=== PATIENT | male | born 1975 | race Caucasian/White ===

== ENCOUNTER 2018-01-07 16:16 | Inpatient (IN) | payer OTHER ==
[2018-01-07] MEDS ORDERED: ONDANSETRON 4 MG INJ IV ×2 (17:00→19:30)
[2018-01-07] MEDS ORDERED: DOCUSATE SODIUM 100 MG CAP PO (19:30)
[2018-01-07] MEDS ORDERED: BISACODYL (EC) 5 MG TAB PO (19:30)
[2018-01-07] MEDS ORDERED: MAGNESIUM HYDROXIDE 30ML CUP PO (19:30)
[2018-01-07] MEDS ORDERED: ACETAMINOPHEN 650 MG SUPP PR (19:30)
[2018-01-07] MEDS ORDERED: NACL 0.9% 3 ML SYG IV (19:30)
[2018-01-07] MEDS: SOD CHLORIDE 0.9% 1,000 ML IV (20:06)
[2018-01-08] MEDS: PIPER-TAZO 3.375 GM IV (PMX) 100 ML IVPB ×4 (00:54→18:10)
[2018-01-08] MEDS: ACETAMINOPHEN 325 MG TAB PO (00:54)
[2018-01-08] MEDS: ALBUTEROL/IPRATROPIUM (NEB) 3 ML AMP HHN ×5 (01:59→19:26)
[2018-01-08 06:51] LABS: ADD MAN DIFF? NO
[2018-01-08] MEDS ORDERED: PENDING SANTYL ORDER FOR WOUND CARE XX (07:00)
[2018-01-08 07:01] LABS: BASOPHIL # 0.1 10^3/ul (0.0-0.1); BASOPHILS % 0.4 % (0.0-2.0); EOSINOPHILS # 0.1 10^3/ul (0.0-0.5); EOSINOPHILS % 0.3 % (0.0-7.0); HEMATOCRIT 39.3 % (42.0-52.0); HEMOGLOBIN 13.1 g/dl (14.0-18.0); LYMPHOCYTES # 1.4 10^3/ul (0.8-2.9); LYMPHOCYTES % 7.7 % (15.0-51.0); MEAN CORPUSCULAR HEMOGLOBIN 29.7 pg (29.0-33.0); MEAN CORPUSCULAR HGB CONC 33.3 g/dl (32.0-37.0); MEAN CORPUSCULAR VOLUME 89.1 fl (82.0-101.0); MEAN PLATELET VOLUME 10.8 fl (7.4-10.4); MONOCYTE # 1.2 10^3/ul (0.3-0.9); MONOCYTES % 6.6 % (0.0-11.0); NEUTROPHIL # 15.8 10^3/ul (1.6-7.5); NEUTROPHILS % 84.5 % (39.0-77.0); PLATELET COUNT 271 10^3/UL (140-415); RED BLOOD COUNT 4.41 10^6/ul (4.70-6.10); RED CELL DISTRIBUTION WIDTH 13.8 % (11.5-14.5)
[2018-01-08 07:01] LABS: WHITE BLOOD COUNT 18.7 10^3/ul (4.8-10.8)
[2018-01-08 07:14] LABS: ALANINE AMINOTRANSFERASE 100 IU/L (13-69); ALBUMIN 3.9 g/dl (3.3-4.9); ALBUMIN/GLOBULIN RATIO 1.11; ALKALINE PHOSPHATASE 194 IU/L (42-121); ANION GAP 17 (8-16); ASPARTATE AMINO TRANSFERASE 80 IU/L (15-46); BILIRUBIN,INDIRECT 0.6 mg/dl (0-1.1); BILIRUBIN,TOTAL 0.6 mg/dl (0.2-1.3); BLOOD UREA NITROGEN 9 mg/dl (7-20); CALCIUM 9.3 mg/dl (8.4-10.2); CARBON DIOXIDE 24 mmol/L (21-31); CHLORIDE 106 mmol/L (97-110); CREATININE 0.64 mg/dl (0.61-1.24); GLUCOSE 153 mg/dl (70-220); POTASSIUM 3.7 mmol/L (3.5-5.1); SODIUM 143 mmol/L (135-144); TOTAL PROTEIN 7.4 g/dl (6.1-8.1)
[2018-01-08] MEDS: ENOXAPARIN 40 MG/0.4 ML SYG SC (09:56)
[2018-01-08] MEDS ORDERED: ALBUTEROL 0.083% (NEB) 2.5 MG/3 ML AMP NEB (12:30)
[2018-01-08] MEDS ORDERED: HYDROCODONE/APAP (5/325) TAB PO (12:30)
[2018-01-08] MEDS ORDERED: MINERAL OIL 133 ML ENEMA PR (12:30)
[2018-01-08] MEDS ORDERED: ACETAMINOPHEN 325 MG TAB PO (12:30)
[2018-01-08] MEDS: GUAIFENESIN LA 600 MG TABSR PO (13:26)
[2018-01-08] MEDS: BISACODYL 10 MG SUPP PR (13:26)
[2018-01-08] MEDS: GABAPENTIN 100 MG CAP PO ×2 (13:27→21:04)
[2018-01-08] MEDS: BACLOFEN 10 MG TAB PO ×2 (13:27→21:03)
[2018-01-08] MEDS: ASCORBIC ACID 500 MG TAB PO (13:41)
[2018-01-08] MEDS: LORATADINE 10 MG TAB PO (13:41)
[2018-01-08] MEDS: FAMOTIDINE 20 MG TAB PO ×2 (13:41→21:04)
[2018-01-08] MEDS: DOCUSATE SODIUM 100 MG CAP PO ×2 (13:42→21:03)
[2018-01-08] MEDS: COLLAGENASE 30 GM TUBE TOP (14:00)
[2018-01-08] MEDS: METOPROLOL (XL) 50 MG TAB PO (21:00)
[2018-01-08] MEDS: PRAZOSIN 1 MG CAP PO (21:00)
[2018-01-09] MEDS: SOD CHLORIDE 0.9% 1,000 ML IV
[2018-01-09] MEDS: GUAIFENESIN LA 600 MG TABSR PO ×2 (00:39→13:38)
[2018-01-09] MEDS: PIPER-TAZO 3.375 GM IV (PMX) 100 ML IVPB ×4 (00:39→20:52)
[2018-01-09] MEDS: ALBUTEROL/IPRATROPIUM (NEB) 3 ML AMP HHN ×4 (02:15→20:31)
[2018-01-09 07:20] LABS: ADD MAN DIFF? NO
[2018-01-09 07:30] LABS: WHITE BLOOD COUNT 10.7 10^3/ul (4.8-10.8)
[2018-01-09 07:30] LABS: BASOPHIL # 0.1 10^3/ul (0.0-0.1); BASOPHILS % 0.7 % (0.0-2.0); EOSINOPHILS # 0.4 10^3/ul (0.0-0.5); EOSINOPHILS % 3.5 % (0.0-7.0); HEMATOCRIT 36.8 % (42.0-52.0); HEMOGLOBIN 12.3 g/dl (14.0-18.0); LYMPHOCYTES # 2.2 10^3/ul (0.8-2.9); LYMPHOCYTES % 20.3 % (15.0-51.0); MEAN CORPUSCULAR HEMOGLOBIN 29.7 pg (29.0-33.0); MEAN CORPUSCULAR HGB CONC 33.4 g/dl (32.0-37.0); MEAN CORPUSCULAR VOLUME 88.9 fl (82.0-101.0); MONOCYTE # 0.7 10^3/ul (0.3-0.9); MONOCYTES % 6.9 % (0.0-11.0); NEUTROPHIL # 7.3 10^3/ul (1.6-7.5); NEUTROPHILS % 68.3 % (39.0-77.0); PLATELET COUNT 327 10^3/UL (140-415); RED BLOOD COUNT 4.14 10^6/ul (4.70-6.10); RED CELL DISTRIBUTION WIDTH 13.7 % (11.5-14.5)
[2018-01-09 07:55] LABS: ALANINE AMINOTRANSFERASE 103 IU/L (13-69); ALBUMIN 3.6 g/dl (3.3-4.9); ALBUMIN/GLOBULIN RATIO 1.12; ALKALINE PHOSPHATASE 100 IU/L (42-121); ANION GAP 13 (8-16); ASPARTATE AMINO TRANSFERASE 43 IU/L (15-46); BILIRUBIN,INDIRECT 0.2 mg/dl (0-1.1); BILIRUBIN,TOTAL 0.2 mg/dl (0.2-1.3); BLOOD UREA NITROGEN 5 mg/dl (7-20); CALCIUM 8.9 mg/dl (8.4-10.2); CARBON DIOXIDE 27 mmol/L (21-31); CHLORIDE 109 mmol/L (97-110); CREATININE 0.64 mg/dl (0.61-1.24); GLUCOSE 127 mg/dl (70-220); POTASSIUM 3.7 mmol/L (3.5-5.1); SODIUM 145 mmol/L (135-144); TOTAL PROTEIN 6.8 g/dl (6.1-8.1)
[2018-01-09] MEDS: MAGNESIUM HYDROXIDE 30ML CUP PO (09:00)
[2018-01-09] MEDS ORDERED: COLLAGENASE 30 GM TUBE TOP (09:00)
[2018-01-09] MEDS: FAMOTIDINE 20 MG TAB PO ×2 (09:51→20:53)
[2018-01-09] MEDS: DOCUSATE SODIUM 100 MG CAP PO ×2 (09:51→20:52)
[2018-01-09] MEDS: LISINOPRIL 10 MG TAB PO (09:52)
[2018-01-09] MEDS: LORATADINE 10 MG TAB PO (09:52)
[2018-01-09] MEDS: ASCORBIC ACID 500 MG TAB PO (09:52)
[2018-01-09] MEDS: TAMSULOSIN (SR) 0.4 MG CAP PO (09:52)
[2018-01-09] MEDS: GABAPENTIN 100 MG CAP PO ×3 (09:52→20:53)
[2018-01-09] MEDS: BACLOFEN 10 MG TAB PO ×3 (09:52→20:55)
[2018-01-09] MEDS: METOPROLOL (XL) 50 MG TAB PO ×2 (09:52→20:54)
[2018-01-09] MEDS: ENOXAPARIN 40 MG/0.4 ML SYG SC (10:07)
[2018-01-09 11:23] LABS: ADD UMIC NO; UR ASCORBIC ACID 20 mg/dL (NEGATIVE); UR BILIRUBIN (Dip) NEGATIVE (NEGATIVE); UR BLOOD (Dip) NEGATIVE (NEGATIVE); UR CLARITY CLEAR (CLEAR); UR COLOR YELLOW (YELLOW); UR GLUCOSE (Dip) 1+ mg/dL (NEGATIVE); UR KETONES (Dip) NEGATIVE (NEGATIVE); UR LEUKOCYTE ESTERASE (Dip) NEGATIVE Leu/ul (NEGATIVE); UR NITRITE (Dip) NEGATIVE (NEGATIVE); UR SPECIFIC GRAVITY (Dip) 1.015 (1.003-1.030); UR TOTAL PROTEIN (Dip) NEGATIVE (NEGATIVE); UR UROBILINOGEN (Dip) NEGATIVE (NEGATIVE)
[2018-01-09] MEDS: COLLAGENASE 30 GM TUBE TOP (13:37)
[2018-01-09] MEDS: BISACODYL 10 MG SUPP PR (20:54)
[2018-01-09] MEDS: PRAZOSIN 1 MG CAP PO (20:54)
[2018-01-10] MEDS: PIPER-TAZO 3.375 GM IV (PMX) 100 ML IVPB ×4 (00:51→17:29)
[2018-01-10] MEDS: GUAIFENESIN LA 600 MG TABSR PO ×2 (00:51→12:51)
[2018-01-10] MEDS: ALBUTEROL/IPRATROPIUM (NEB) 3 ML AMP HHN ×4 (02:17→19:55)
[2018-01-10] MEDS: ACETAMINOPHEN 325 MG TAB PO (06:34)
[2018-01-10] MEDS: MAGNESIUM HYDROXIDE 30ML CUP PO ×2 (08:27→08:40)
[2018-01-10] MEDS: GABAPENTIN 100 MG CAP PO ×3 (08:28→20:14)
[2018-01-10] MEDS: FAMOTIDINE 20 MG TAB PO ×2 (08:28→20:14)
[2018-01-10] MEDS: DOCUSATE SODIUM 100 MG CAP PO ×2 (08:28→20:14)
[2018-01-10] MEDS: TAMSULOSIN (SR) 0.4 MG CAP PO (08:28)
[2018-01-10] MEDS: ASCORBIC ACID 500 MG TAB PO (08:28)
[2018-01-10] MEDS: LISINOPRIL 10 MG TAB PO (08:28)
[2018-01-10] MEDS: BACLOFEN 10 MG TAB PO ×3 (08:28→20:14)
[2018-01-10] MEDS: LORATADINE 10 MG TAB PO (08:28)
[2018-01-10] MEDS: METOPROLOL (XL) 50 MG TAB PO ×2 (08:29→20:15)
[2018-01-10] MEDS: COLLAGENASE 30 GM TUBE TOP (08:30)
[2018-01-10] MEDS: ENOXAPARIN 40 MG/0.4 ML SYG SC (08:39)
[2018-01-10] MEDS: PRAZOSIN 1 MG CAP PO (20:15)
[2018-01-10] MEDS: BISACODYL 10 MG SUPP PR (20:16)
[2018-01-11] MEDS: GUAIFENESIN LA 600 MG TABSR PO ×2 (00:30→13:33)
[2018-01-11] MEDS: PIPER-TAZO 3.375 GM IV (PMX) 100 ML IVPB ×4 (00:50→19:07)
[2018-01-11] MEDS: ALBUTEROL/IPRATROPIUM (NEB) 3 ML AMP HHN ×4 (01:43→19:42)
[2018-01-11] MEDS: ACETAMINOPHEN 325 MG TAB PO ×2 (06:01→13:33)
[2018-01-11] MEDS: MAGNESIUM HYDROXIDE 30ML CUP PO (09:00)
[2018-01-11] MEDS: TAMSULOSIN (SR) 0.4 MG CAP PO (09:33)
[2018-01-11] MEDS: BACLOFEN 10 MG TAB PO ×3 (09:33→21:21)
[2018-01-11] MEDS: LORATADINE 10 MG TAB PO (09:33)
[2018-01-11] MEDS: DOCUSATE SODIUM 100 MG CAP PO ×2 (09:33→21:21)
[2018-01-11] MEDS: ASCORBIC ACID 500 MG TAB PO (09:34)
[2018-01-11] MEDS: FAMOTIDINE 20 MG TAB PO ×2 (09:34→21:21)
[2018-01-11] MEDS: GABAPENTIN 100 MG CAP PO ×3 (09:34→21:21)
[2018-01-11] MEDS: METOPROLOL (XL) 50 MG TAB PO ×2 (09:34→21:21)
[2018-01-11] MEDS: LISINOPRIL 10 MG TAB PO (09:34)
[2018-01-11] MEDS: COLLAGENASE 30 GM TUBE TOP (09:35)
[2018-01-11] MEDS: ENOXAPARIN 40 MG/0.4 ML SYG SC (09:37)
[2018-01-11 11:13] LABS: ADD MAN DIFF? NO
[2018-01-11 11:21] LABS: WHITE BLOOD COUNT 8.1 10^3/ul (4.8-10.8)
[2018-01-11 11:21] LABS: BASOPHIL # 0.1 10^3/ul (0.0-0.1); BASOPHILS % 0.7 % (0.0-2.0); EOSINOPHILS # 0.6 10^3/ul (0.0-0.5); EOSINOPHILS % 6.8 % (0.0-7.0); HEMATOCRIT 36.7 % (42.0-52.0); HEMOGLOBIN 12.4 g/dl (14.0-18.0); LYMPHOCYTES # 1.8 10^3/ul (0.8-2.9); LYMPHOCYTES % 21.9 % (15.0-51.0); MEAN CORPUSCULAR HEMOGLOBIN 29.7 pg (29.0-33.0); MEAN CORPUSCULAR HGB CONC 33.8 g/dl (32.0-37.0); MEAN CORPUSCULAR VOLUME 87.8 fl (82.0-101.0); MEAN PLATELET VOLUME 9.6 fl (7.4-10.4); MONOCYTE # 0.5 10^3/ul (0.3-0.9); MONOCYTES % 5.9 % (0.0-11.0); NEUTROPHIL # 5.2 10^3/ul (1.6-7.5); NEUTROPHILS % 64.1 % (39.0-77.0); PLATELET COUNT 423 10^3/UL (140-415); RED BLOOD COUNT 4.18 10^6/ul (4.70-6.10); RED CELL DISTRIBUTION WIDTH 13.2 % (11.5-14.5)
[2018-01-11 11:54] LABS: ANION GAP 13 (8-16); BLOOD UREA NITROGEN 5 mg/dl (7-20); CALCIUM 9.5 mg/dl (8.4-10.2); CARBON DIOXIDE 27 mmol/L (21-31); CHLORIDE 104 mmol/L (97-110); CREATININE 0.69 mg/dl (0.61-1.24); GLUCOSE 217 mg/dl (70-220); POTASSIUM 3.9 mmol/L (3.5-5.1); SODIUM 140 mmol/L (135-144)
[2018-01-11] MEDS ORDERED: GUAIFENESIN/CODEINE 5ML CUP PO (13:30)
[2018-01-11] MEDS: PRAZOSIN 1 MG CAP PO (21:20)
[2018-01-11] MEDS: BISACODYL 10 MG SUPP PR (21:21)
[2018-01-12] MEDS: PIPER-TAZO 3.375 GM IV (PMX) 100 ML IVPB ×4 (00:16→17:43)
[2018-01-12] MEDS: GUAIFENESIN LA 600 MG TABSR PO ×2 (00:16→12:30)
[2018-01-12] MEDS: ALBUTEROL/IPRATROPIUM (NEB) 3 ML AMP HHN ×4 (01:34→20:11)
[2018-01-12] MEDS: GABAPENTIN 100 MG CAP PO ×3 (08:59→22:17)
[2018-01-12] MEDS: ASCORBIC ACID 500 MG TAB PO (08:59)
[2018-01-12] MEDS: MAGNESIUM HYDROXIDE 30ML CUP PO (09:00)
[2018-01-12] MEDS: METOPROLOL (XL) 50 MG TAB PO ×4 (09:00→22:17)
[2018-01-12] MEDS: TAMSULOSIN (SR) 0.4 MG CAP PO (09:01)
[2018-01-12] MEDS: LORATADINE 10 MG TAB PO (09:01)
[2018-01-12] MEDS: LISINOPRIL 20 MG TAB PO (09:01)
[2018-01-12] MEDS: FAMOTIDINE 20 MG TAB PO ×2 (09:01→22:17)
[2018-01-12] MEDS: BACLOFEN 10 MG TAB PO ×3 (09:03→22:18)
[2018-01-12] MEDS: DOCUSATE SODIUM 100 MG CAP PO ×2 (09:04→22:17)
[2018-01-12] MEDS: ENOXAPARIN 40 MG/0.4 ML SYG SC (09:04)
[2018-01-12] MEDS: COLLAGENASE 30 GM TUBE TOP (09:05)
[2018-01-12] MEDS: ACETAMINOPHEN 325 MG TAB PO ×2 (09:13→22:31)
[2018-01-12] MEDS ORDERED: AL HYDROX/MG HYDROX/SIMETH 30 ML CUP PO (15:30)
[2018-01-12] MEDS: BISACODYL 10 MG SUPP PR ×2 (21:00→22:18)
[2018-01-12] MEDS: PRAZOSIN 1 MG CAP PO (22:18)
[2018-01-13] MEDS: PIPER-TAZO 3.375 GM IV (PMX) 100 ML IVPB ×4 (00:31→17:03)
[2018-01-13] MEDS: GUAIFENESIN LA 600 MG TABSR PO ×2 (00:33→12:33)
[2018-01-13] MEDS: ALBUTEROL/IPRATROPIUM (NEB) 3 ML AMP HHN ×4 (01:21→19:51)
[2018-01-13] MEDS: METOPROLOL (XL) 50 MG TAB PO (09:00)
[2018-01-13] MEDS: MAGNESIUM HYDROXIDE 30ML CUP PO (09:00)
[2018-01-13] MEDS: DOCUSATE SODIUM 100 MG CAP PO (09:00)
[2018-01-13] MEDS: GABAPENTIN 100 MG CAP PO ×3 (09:23→21:45)
[2018-01-13] MEDS: BACLOFEN 10 MG TAB PO ×3 (09:23→21:46)
[2018-01-13] MEDS: FAMOTIDINE 20 MG TAB PO ×2 (09:23→21:44)
[2018-01-13] MEDS: TAMSULOSIN (SR) 0.4 MG CAP PO (09:24)
[2018-01-13] MEDS: ENOXAPARIN 40 MG/0.4 ML SYG SC (09:24)
[2018-01-13] MEDS: LISINOPRIL 20 MG TAB PO (09:24)
[2018-01-13] MEDS: ASCORBIC ACID 500 MG TAB PO (09:24)
[2018-01-13] MEDS: LORATADINE 10 MG TAB PO (09:24)
[2018-01-13] MEDS: COLLAGENASE 30 GM TUBE TOP (09:26)
[2018-01-13] MEDS: BISACODYL 10 MG SUPP PR (21:45)
[2018-01-13] MEDS: PRAZOSIN 1 MG CAP PO (21:45)
[2018-01-14] MEDS: GUAIFENESIN LA 600 MG TABSR PO ×2 (01:17→12:09)
[2018-01-14] MEDS: PIPER-TAZO 3.375 GM IV (PMX) 100 ML IVPB ×4 (01:17→17:33)
[2018-01-14] MEDS: ALBUTEROL/IPRATROPIUM (NEB) 3 ML AMP HHN ×4 (02:07→19:37)
[2018-01-14] MEDS: ENOXAPARIN 40 MG/0.4 ML SYG SC (10:01)
[2018-01-14] MEDS: LORATADINE 10 MG TAB PO (10:03)
[2018-01-14] MEDS: LISINOPRIL 20 MG TAB PO (10:03)
[2018-01-14] MEDS: BACLOFEN 10 MG TAB PO ×3 (10:03→20:23)
[2018-01-14] MEDS: GABAPENTIN 100 MG CAP PO ×3 (10:03→20:23)
[2018-01-14] MEDS: FAMOTIDINE 20 MG TAB PO ×2 (10:03→20:24)
[2018-01-14] MEDS: ASCORBIC ACID 500 MG TAB PO (10:03)
[2018-01-14] MEDS: TAMSULOSIN (SR) 0.4 MG CAP PO (10:03)
[2018-01-14] MEDS: COLLAGENASE 30 GM TUBE TOP (10:04)
[2018-01-14] MEDS: BISACODYL 10 MG SUPP PR (20:24)
[2018-01-14] MEDS: PRAZOSIN 1 MG CAP PO (20:24)
== END 2018-01-14 20:59 | DRG 871 ==
LOC: TEL 16:34 → PP2 01-10 23:15 → E/R 16:16
DX: A41.9 Sepsis, unspecified organism (principal); J69.0 Pneumonitis due to inhalation of food and vomit; G82.50 Quadriplegia, unspecified; L89.153 Pressure ulcer of sacral region, stage 3; L89.893 Pressure ulcer of other site, stage 3; L89.323 Pressure ulcer of left buttock, stage 3; L89.313 Pressure ulcer of right buttock, stage 3; R06.03 Acute respiratory distress; R33.9 Retention of urine, unspecified; I10 Essential (primary) hypertension; Z74.01 Bed confinement status
CPT/HCPCS: 71045; 80048; 80053; 81003; 85025; 92526; 92610; 94640; 99285-25

== ENCOUNTER 2018-01-23 12:38 | Inpatient (IN) | payer OTHER ==
[2018-01-23] MEDS: ALBUTEROL/IPRATROPIUM (NEB) 3 ML AMP HHN ×2 (14:30→19:55)
[2018-01-23] MEDS ORDERED: morphine 2 MG INJ IV (14:30)
[2018-01-23] MEDS ORDERED: MINERAL OIL 133 ML ENEMA PR (15:30)
[2018-01-23] MEDS: ASCORBIC ACID 500 MG TAB PO (15:30)
[2018-01-23] MEDS: LISINOPRIL 10 MG TAB PO (15:30)
[2018-01-23] MEDS: BISACODYL 10 MG SUPP PR (15:30)
[2018-01-23] MEDS ORDERED: HYDROCODONE/APAP (5/325) TAB PO (15:30)
[2018-01-23] MEDS ORDERED: NON-FORMULARY/PATIENT OWN MED (Cranberry Fruit Concentrate (Cranberry) 450 MG) PO (15:30)
[2018-01-23] MEDS ORDERED: ACETAMINOPHEN 325 MG TAB PO (15:30)
[2018-01-23 15:45] LABS: ADD MAN DIFF? NO
[2018-01-23 15:47] LABS: WHITE BLOOD COUNT 8.5 10^3/ul (4.8-10.8)
[2018-01-23 15:47] LABS: BASOPHIL # 0.1 10^3/ul (0.0-0.1); BASOPHILS % 0.7 % (0.0-2.0); EOSINOPHILS # 0.2 10^3/ul (0.0-0.5); EOSINOPHILS % 2.4 % (0.0-7.0); HEMATOCRIT 40.9 % (42.0-52.0); HEMOGLOBIN 13.7 g/dl (14.0-18.0); LYMPHOCYTES # 1.3 10^3/ul (0.8-2.9); LYMPHOCYTES % 14.7 % (15.0-51.0); MEAN CORPUSCULAR HEMOGLOBIN 29.7 pg (29.0-33.0); MEAN CORPUSCULAR HGB CONC 33.5 g/dl (32.0-37.0); MEAN CORPUSCULAR VOLUME 88.7 fl (82.0-101.0); MEAN PLATELET VOLUME 9.8 fl (7.4-10.4); MONOCYTE # 0.5 10^3/ul (0.3-0.9); MONOCYTES % 6.1 % (0.0-11.0); NEUTROPHIL # 6.4 10^3/ul (1.6-7.5); NEUTROPHILS % 75.7 % (39.0-77.0); PLATELET COUNT 408 10^3/UL (140-415); RED BLOOD COUNT 4.61 10^6/ul (4.70-6.10); RED CELL DISTRIBUTION WIDTH 13.3 % (11.5-14.5)
[2018-01-23] MEDS: GUAIFENESIN LA 600 MG TABSR PO (16:00)
[2018-01-23 16:07] LABS: ANION GAP 15 (8-16); BLOOD UREA NITROGEN 6 mg/dl (7-20); CALCIUM 9.4 mg/dl (8.4-10.2); CARBON DIOXIDE 27 mmol/L (21-31); CHLORIDE 106 mmol/L (97-110); CREATININE 0.64 mg/dl (0.61-1.24); GLUCOSE 119 mg/dl (70-220); SODIUM 144 mmol/L (135-144)
[2018-01-23] MEDS: CEFTRIAXONE 1 GM/50 ML (PMX) 50 ML IVPB (17:22)
[2018-01-23] MEDS: CYCLOBENZAPRINE 10 MG TAB PO ×2 (17:22→19:00)
[2018-01-23] MEDS: GABAPENTIN 300 MG CAP PO ×2 (17:22→22:00)
[2018-01-23] MEDS: TAMSULOSIN (SR) 0.4 MG CAP PO (17:23)
[2018-01-23] MEDS: LORATADINE 10 MG TAB PO (17:23)
[2018-01-23] MEDS: METOPROLOL (XL) 50 MG TAB PO (21:00)
[2018-01-23] MEDS: PRAZOSIN 1 MG CAP PO (21:00)
[2018-01-23] MEDS: BACLOFEN 10 MG TAB PO (21:50)
[2018-01-23] MEDS: DOCUSATE SODIUM 100 MG CAP PO (21:50)
[2018-01-24] MEDS: CYCLOBENZAPRINE 10 MG TAB PO ×4 (00:25→17:48)
[2018-01-24] MEDS: GUAIFENESIN LA 600 MG TABSR PO ×3 (00:25→20:49)
[2018-01-24] MEDS: ALBUTEROL/IPRATROPIUM (NEB) 3 ML AMP HHN ×4 (02:28→19:06)
[2018-01-24] MEDS: PANTOPRAZOLE 40 MG INJ IV (06:02)
[2018-01-24] MEDS: METOPROLOL (XL) 50 MG TAB PO ×2 (09:00→20:51)
[2018-01-24] MEDS: LISINOPRIL 10 MG TAB PO (09:00)
[2018-01-24] MEDS ORDERED: NON-FORMULARY/PATIENT OWN MED (Multivitamin with Minerals (Multivitamins with Minerals) 1 PO (09:00)
[2018-01-24] MEDS: LORATADINE 10 MG TAB PO (09:11)
[2018-01-24] MEDS: BACLOFEN 10 MG TAB PO ×3 (09:11→20:50)
[2018-01-24] MEDS: DOCUSATE SODIUM 100 MG CAP PO ×2 (09:11→20:50)
[2018-01-24] MEDS: TAMSULOSIN (SR) 0.4 MG CAP PO (09:11)
[2018-01-24] MEDS: ASCORBIC ACID 500 MG TAB PO (09:11)
[2018-01-24] MEDS: GABAPENTIN 300 MG CAP PO ×2 (09:11→20:49)
[2018-01-24] MEDS: MULTIVITAMINS/MINERALS TAB PO (09:13)
[2018-01-24] MEDS: MAGNESIUM HYDROXIDE 30ML CUP PO (09:13)
[2018-01-24] MEDS: CEFTRIAXONE 1 GM/50 ML (PMX) 50 ML IVPB (17:00)
[2018-01-24] MEDS: BISACODYL 10 MG SUPP PR (20:49)
[2018-01-24] MEDS: PRAZOSIN 1 MG CAP PO (20:50)
[2018-01-25] MEDS: CYCLOBENZAPRINE 10 MG TAB PO ×4 (00:45→18:30)
[2018-01-25] MEDS: SALINE 0.65% 45 ML NAS SPRAY NASAL ×3 (01:10→21:09)
[2018-01-25] MEDS: ALBUTEROL/IPRATROPIUM (NEB) 3 ML AMP HHN ×4 (01:32→19:10)
[2018-01-25] MEDS: PANTOPRAZOLE 40 MG INJ IV (05:53)
[2018-01-25] MEDS: MAGNESIUM HYDROXIDE 30ML CUP PO (09:00)
[2018-01-25] MEDS: METOPROLOL (XL) 50 MG TAB PO ×2 (09:00→20:55)
[2018-01-25] MEDS: GUAIFENESIN LA 600 MG TABSR PO ×2 (09:24→20:56)
[2018-01-25] MEDS: LORATADINE 10 MG TAB PO (09:24)
[2018-01-25] MEDS: TAMSULOSIN (SR) 0.4 MG CAP PO (09:24)
[2018-01-25] MEDS: DOCUSATE SODIUM 100 MG CAP PO ×2 (09:24→20:56)
[2018-01-25] MEDS: MULTIVITAMINS/MINERALS TAB PO (09:24)
[2018-01-25] MEDS: GABAPENTIN 300 MG CAP PO ×2 (09:25→20:56)
[2018-01-25] MEDS: BACLOFEN 10 MG TAB PO ×3 (09:25→20:56)
[2018-01-25] MEDS: LISINOPRIL 10 MG TAB PO (09:25)
[2018-01-25] MEDS: ASCORBIC ACID 500 MG TAB PO (09:25)
[2018-01-25] MEDS: ENOXAPARIN 30 MG/0.3 ML SYG SC (09:27)
[2018-01-25] MEDS: CEFTRIAXONE 1 GM/50 ML (PMX) 50 ML IVPB (14:30)
[2018-01-25] MEDS: BISACODYL 10 MG SUPP PR (15:30)
[2018-01-25] MEDS: NYSTATIN 30 GM POWDER BTL TOP (20:54)
[2018-01-25] MEDS: PRAZOSIN 1 MG CAP PO (20:57)
[2018-01-26] MEDS: CYCLOBENZAPRINE 10 MG TAB PO ×6 (00:45→23:35)
[2018-01-26] MEDS: ALBUTEROL/IPRATROPIUM (NEB) 3 ML AMP HHN ×4 (02:11→19:59)
[2018-01-26] MEDS: PANTOPRAZOLE 40 MG INJ IV (06:37)
[2018-01-26] MEDS: ASCORBIC ACID 500 MG TAB PO (08:56)
[2018-01-26] MEDS: GABAPENTIN 300 MG CAP PO ×2 (08:56→20:41)
[2018-01-26] MEDS: GUAIFENESIN LA 600 MG TABSR PO ×2 (08:56→20:41)
[2018-01-26] MEDS: TAMSULOSIN (SR) 0.4 MG CAP PO (08:56)
[2018-01-26] MEDS: LORATADINE 10 MG TAB PO (08:56)
[2018-01-26] MEDS: MULTIVITAMINS/MINERALS TAB PO (08:56)
[2018-01-26] MEDS: BACLOFEN 10 MG TAB PO ×4 (08:56→20:42)
[2018-01-26] MEDS: DOCUSATE SODIUM 100 MG CAP PO ×2 (08:56→20:42)
[2018-01-26] MEDS: ENOXAPARIN 30 MG/0.3 ML SYG SC (08:58)
[2018-01-26] MEDS: METOPROLOL (XL) 50 MG TAB PO ×2 (09:00→20:47)
[2018-01-26] MEDS: NYSTATIN 30 GM POWDER BTL TOP ×2 (09:00→20:43)
[2018-01-26] MEDS: MAGNESIUM HYDROXIDE 30ML CUP PO (09:00)
[2018-01-26] MEDS: LISINOPRIL 10 MG TAB PO (09:00)
[2018-01-26] MEDS: SALINE 0.65% 45 ML NAS SPRAY NASAL ×2 (09:01→20:43)
[2018-01-26] MEDS: CEFTRIAXONE 1 GM/50 ML (PMX) 50 ML IVPB (13:53)
[2018-01-26] MEDS: BISACODYL 10 MG SUPP PR (15:30)
[2018-01-26] MEDS: MUPIROCIN 2% 22 GM OINT TOP (20:42)
[2018-01-26] MEDS: PRAZOSIN 1 MG CAP PO (20:46)
[2018-01-27] MEDS: ALBUTEROL/IPRATROPIUM (NEB) 3 ML AMP HHN ×3 (01:31→14:00)
[2018-01-27] MEDS: CYCLOBENZAPRINE 10 MG TAB PO ×3 (05:07→17:17)
[2018-01-27] MEDS: PANTOPRAZOLE 40 MG INJ IV (05:07)
[2018-01-27 05:43] LABS: ADD MAN DIFF? NO
[2018-01-27 05:45] LABS: WHITE BLOOD COUNT 7.2 10^3/ul (4.8-10.8)
[2018-01-27 05:45] LABS: BASOPHIL # 0.1 10^3/ul (0.0-0.1); BASOPHILS % 1.1 % (0.0-2.0); EOSINOPHILS # 0.5 10^3/ul (0.0-0.5); EOSINOPHILS % 6.2 % (0.0-7.0); HEMATOCRIT 41.6 % (42.0-52.0); HEMOGLOBIN 13.8 g/dl (14.0-18.0); LYMPHOCYTES # 2.6 10^3/ul (0.8-2.9); LYMPHOCYTES % 36.3 % (15.0-51.0); MEAN CORPUSCULAR HEMOGLOBIN 29.6 pg (29.0-33.0); MEAN CORPUSCULAR HGB CONC 33.2 g/dl (32.0-37.0); MEAN CORPUSCULAR VOLUME 89.1 fl (82.0-101.0); MEAN PLATELET VOLUME 9.7 fl (7.4-10.4); MONOCYTE # 0.6 10^3/ul (0.3-0.9); MONOCYTES % 7.9 % (0.0-11.0); NEUTROPHIL # 3.5 10^3/ul (1.6-7.5); NEUTROPHILS % 48.2 % (39.0-77.0); PLATELET COUNT 404 10^3/UL (140-415); RED BLOOD COUNT 4.67 10^6/ul (4.70-6.10); RED CELL DISTRIBUTION WIDTH 13.4 % (11.5-14.5)
[2018-01-27 06:17] LABS: ANION GAP 16 (8-16); BLOOD UREA NITROGEN 8 mg/dl (7-20); CALCIUM 9.3 mg/dl (8.4-10.2); CARBON DIOXIDE 27 mmol/L (21-31); CHLORIDE 104 mmol/L (97-110); CREATININE 0.61 mg/dl (0.61-1.24); GLUCOSE 132 mg/dl (70-220); POTASSIUM 3.8 mmol/L (3.5-5.1); SODIUM 143 mmol/L (135-144)
[2018-01-27 06:20] LABS: PHOSPHORUS 3.4 mg/dl (2.5-4.9)
[2018-01-27] MEDS: MAGNESIUM HYDROXIDE 30ML CUP PO ×2 (09:00→09:03)
[2018-01-27] MEDS: ENOXAPARIN 30 MG/0.3 ML SYG SC (09:03)
[2018-01-27] MEDS: ASCORBIC ACID 500 MG TAB PO (09:04)
[2018-01-27] MEDS: LORATADINE 10 MG TAB PO (09:04)
[2018-01-27] MEDS: GUAIFENESIN LA 600 MG TABSR PO (09:04)
[2018-01-27] MEDS: MULTIVITAMINS/MINERALS TAB PO (09:04)
[2018-01-27] MEDS: GABAPENTIN 300 MG CAP PO (09:04)
[2018-01-27] MEDS: BACLOFEN 10 MG TAB PO ×2 (09:04→12:46)
[2018-01-27] MEDS: DOCUSATE SODIUM 100 MG CAP PO (09:04)
[2018-01-27] MEDS: METOPROLOL (XL) 50 MG TAB PO (09:05)
[2018-01-27] MEDS: SALINE 0.65% 45 ML NAS SPRAY NASAL (09:06)
[2018-01-27] MEDS: LISINOPRIL 10 MG TAB PO (09:06)
[2018-01-27] MEDS: NYSTATIN 30 GM POWDER BTL TOP (09:07)
[2018-01-27] MEDS: MUPIROCIN 2% 22 GM OINT TOP (09:07)
[2018-01-27] MEDS: TAMSULOSIN (SR) 0.4 MG CAP PO (09:09)
[2018-01-27] MEDS: AZITHROMYCIN 250 MG TAB PO (09:09)
[2018-01-27] MEDS: CEFTRIAXONE 1 GM/50 ML (PMX) 50 ML IVPB (14:02)
[2018-01-27] MEDS: BISACODYL 10 MG SUPP PR (15:30)
== END 2018-01-27 18:19 | DRG 193 ==
LOC: PP2 12:38
DX: J18.9 Pneumonia, unspecified organism (principal); G82.50 Quadriplegia, unspecified; L89.152 Pressure ulcer of sacral region, stage 2; I10 Essential (primary) hypertension; N40.0 Benign prostatic hyperplasia without lower urinary tract symptoms; Z88.2 Allergy status to sulfonamides; Z74.01 Bed confinement status
CPT/HCPCS: 71045; 80048; 83735; 84100; 85025; 87070; 87081; 94640; 94664

== ENCOUNTER 2018-03-17 01:12 | Emergency (ER) | payer OTHER ==
[2018-03-17 02:30] LABS: ADD MAN DIFF? NO
[2018-03-17 02:36] LABS: WHITE BLOOD COUNT 10.4 10^3/ul (4.8-10.8)
[2018-03-17 02:36] LABS: BASOPHIL # 0.1 10^3/ul (0.0-0.1); BASOPHILS % 0.8 % (0.0-2.0); EOSINOPHILS # 0.5 10^3/ul (0.0-0.5); HEMATOCRIT 38.9 % (42.0-52.0); LYMPHOCYTES # 3.7 10^3/ul (0.8-2.9); LYMPHOCYTES % 35.4 % (15.0-51.0); MEAN CORPUSCULAR HEMOGLOBIN 28.9 pg (29.0-33.0); MEAN CORPUSCULAR HGB CONC 33.4 g/dl (32.0-37.0); MEAN CORPUSCULAR VOLUME 86.4 fl (82.0-101.0); MEAN PLATELET VOLUME 9.6 fl (7.4-10.4); MONOCYTE # 0.5 10^3/ul (0.3-0.9); MONOCYTES % 5.2 % (0.0-11.0); NEUTROPHIL # 5.6 10^3/ul (1.6-7.5); NEUTROPHILS % 53.3 % (39.0-77.0); PLATELET COUNT 357 10^3/UL (140-415); RED CELL DISTRIBUTION WIDTH 13.3 % (11.5-14.5)
[2018-03-17 02:54] LABS: ALANINE AMINOTRANSFERASE 53 IU/L (13-69); ALBUMIN 3.8 g/dl (3.3-4.9); ALBUMIN/GLOBULIN RATIO 1.18; ALKALINE PHOSPHATASE 78 IU/L (42-121); ANION GAP 17 (8-16); ASPARTATE AMINO TRANSFERASE 17 IU/L (15-46); BILIRUBIN,INDIRECT 0.1 mg/dl (0-1.1); BILIRUBIN,TOTAL 0.1 mg/dl (0.2-1.3); BLOOD UREA NITROGEN 9 mg/dl (7-20); CALCIUM 9.1 mg/dl (8.4-10.2); CARBON DIOXIDE 25 mmol/L (21-31); CHLORIDE 104 mmol/L (97-110); CREATININE 0.56 mg/dl (0.61-1.24); GLUCOSE 197 mg/dl (70-220); LIPASE 130 U/L (23-300); POTASSIUM 3.5 mmol/L (3.5-5.1); SODIUM 142 mmol/L (135-144)
[2018-03-17 03:18] LABS: ADD UMIC YES; UR ASCORBIC ACID NEGATIVE (NEGATIVE); UR BILIRUBIN (Dip) NEGATIVE (NEGATIVE); UR BLOOD (Dip) 1+ mg/dL (NEGATIVE); UR CLARITY CLEAR (CLEAR); UR COLOR YELLOW (YELLOW); UR GLUCOSE (Dip) 1+ mg/dL (NEGATIVE); UR KETONES (Dip) NEGATIVE (NEGATIVE); UR LEUKOCYTE ESTERASE (Dip) 3+ Leu/ul (NEGATIVE); UR NITRITE (Dip) NEGATIVE (NEGATIVE); UR RBC 1 /HPF (0-5); UR SPECIFIC GRAVITY (Dip) 1.008 (1.003-1.030); UR TOTAL PROTEIN (Dip) NEGATIVE (NEGATIVE); UR UROBILINOGEN (Dip) NEGATIVE (NEGATIVE); UR WBC 47 /HPF (0-5)
== END 2018-03-17 05:30 | disposition short-term general hospital (02) ==
LOC: E/R 05:30
DX: T83.511A Infection and inflammatory reaction due to indwelling urethral catheter, initial encounter (principal); Y73.8 Miscellaneous gastroenterology and urology devices associated with adverse incidents, not elsewhere classified
CPT/HCPCS: 36415; 74176; 80053; 81001; 83690; 85025; 99285-25

== ENCOUNTER 2018-04-18 18:03 | Emergency (ER) | payer OTHER | END 2018-04-19 00:54 | disposition home or self-care (01) | LOC: E/R 04-19 00:54 | DX: T83.098A Other mechanical complication of other urinary catheter, initial encounter (principal); Y73.8 Miscellaneous gastroenterology and urology devices associated with adverse incidents, not elsewhere classified | CPT/HCPCS: 51702; 99283-25 ==

== ENCOUNTER 2018-04-28 13:22 | Inpatient (IN) | payer OTHER ==
[2018-04-28] MEDS: IBUPROFEN 800 MG TAB PO (14:04)
[2018-04-28] MEDS: SODIUM CHLORIDE 0.9% 1L BAG IV* (14:04)
[2018-04-28] MEDS: CEFEPIME 2GM/50 ML (PMX) 50 ML IVPB (14:16)
[2018-04-28 14:35] LABS: ADD MAN DIFF? NO
[2018-04-28 14:39] LABS: BASOPHIL # 0.1 10^3/ul (0.0-0.1); BASOPHILS % 0.3 % (0.0-2.0); EOSINOPHILS % 0.2 % (0.0-7.0); HEMOGLOBIN 13.7 g/dl (14.0-18.0); LYMPHOCYTES # 0.9 10^3/ul (0.8-2.9); LYMPHOCYTES % 5.1 % (15.0-51.0); MEAN CORPUSCULAR HEMOGLOBIN 29.1 pg (29.0-33.0); MEAN CORPUSCULAR HGB CONC 33.4 g/dl (32.0-37.0); MEAN PLATELET VOLUME 9.7 fl (7.4-10.4); MONOCYTE # 0.9 10^3/ul (0.3-0.9); MONOCYTES % 5.3 % (0.0-11.0); NEUTROPHIL # 15.3 10^3/ul (1.6-7.5); NEUTROPHILS % 88.5 % (39.0-77.0); PLATELET COUNT 381 10^3/UL (140-415); RED BLOOD COUNT 4.71 10^6/ul (4.70-6.10); RED CELL DISTRIBUTION WIDTH 13.7 % (11.5-14.5)
[2018-04-28 14:39] LABS: WHITE BLOOD COUNT 17.3 10^3/ul (4.8-10.8)
[2018-04-28 14:47] LABS: ADD UMIC YES; UR ASCORBIC ACID 20 mg/dL (NEGATIVE); UR BACTERIA FEW /HPF (NONE SEEN); UR BILIRUBIN (Dip) NEGATIVE (NEGATIVE); UR BLOOD (Dip) NEGATIVE (NEGATIVE); UR CLARITY CLOUDY (CLEAR); UR COLOR AMBER (YELLOW); UR GLUCOSE (Dip) NEGATIVE (NEGATIVE); UR KETONES (Dip) NEGATIVE (NEGATIVE); UR LEUKOCYTE ESTERASE (Dip) 3+ Leu/ul (NEGATIVE); UR NITRITE (Dip) NEGATIVE (NEGATIVE); UR RBC 7 /HPF (0-5); UR SPECIFIC GRAVITY (Dip) 1.015 (1.003-1.030); UR TOTAL PROTEIN (Dip) 1+ mg/dl (NEGATIVE); UR UROBILINOGEN (Dip) NEGATIVE (NEGATIVE); UR WBC > 182 /HPF (0-5)
[2018-04-28 14:56] LABS: ALANINE AMINOTRANSFERASE 84 IU/L (13-69); ALBUMIN 3.9 g/dl (3.3-4.9); ALBUMIN/GLOBULIN RATIO 1.18; ALKALINE PHOSPHATASE 69 IU/L (42-121); ANION GAP 12 (8-16); ASPARTATE AMINO TRANSFERASE 56 IU/L (15-46); BILIRUBIN,INDIRECT 0.5 mg/dl (0-1.1); BILIRUBIN,TOTAL 0.5 mg/dl (0.2-1.3); BLOOD UREA NITROGEN 12 mg/dl (7-20); CALCIUM 9.1 mg/dl (8.4-10.2); CARBON DIOXIDE 26 mmol/L (21-31); CHLORIDE 106 mmol/L (97-110); CREATININE 0.66 mg/dl (0.61-1.24); GLUCOSE 124 mg/dl (70-220); POTASSIUM 4.2 mmol/L (3.5-5.1); SODIUM 140 mmol/L (135-144); TOTAL PROTEIN 7.2 g/dl (6.1-8.1)
[2018-04-28 14:56] LABS: LACTIC ACID 2.7 mmol/L (0.5-2.0)
[2018-04-28 14:57] LABS: INR 1.03; PROTIME 13.6 Sec (11.9-14.9); PT RATIO 1.1
[2018-04-28 14:58] LABS: PARTIAL THROMBOPLASTIN TIME 32.1 Sec (25.0-35.0)
[2018-04-28 15:07] LABS: TROPONIN-I 0.017 ng/ml (0.000-0.120)
[2018-04-28] MEDS: VANCOMYCIN 1 GM (PMX) 250 ML IVPB (15:12)
[2018-04-28] MEDS ORDERED: ONDANSETRON 4 MG INJ IV ×2 (16:00→16:30)
[2018-04-28] MEDS ORDERED: ACETAMINOPHEN 325 MG TAB PO ×2 (16:00→16:30)
[2018-04-28] MEDS ORDERED: HYDROCODONE/APAP (5/325) TAB PO (16:30)
[2018-04-28] MEDS ORDERED: VANCOMYCIN IV PER PHARMACY XX (16:30)
[2018-04-28] MEDS ORDERED: DOCUSATE SODIUM 100 MG CAP PO (16:30)
[2018-04-28] MEDS ORDERED: morphine 2 MG INJ IV (16:30)
[2018-04-28] MEDS ORDERED: NACL 0.9% 3 ML SYG IV (16:30)
[2018-04-28] MEDS ORDERED: ALBUTEROL 0.083% (NEB) 2.5 MG/3 ML AMP NEB (17:00)
[2018-04-28] MEDS ORDERED: CEPASTAT LOZENGE MM (17:00)
[2018-04-28] MEDS ORDERED: CYCLOBENZAPRINE 10 MG TAB PO (17:00)
[2018-04-28] MEDS ORDERED: MINERAL OIL 133 ML ENEMA PR (17:00)
[2018-04-28] MEDS: SOD CHLORIDE 0.9% 500 ML IV (18:23)
[2018-04-28 19:22] LABS: LACTIC ACID 1.9 mmol/L (0.5-2.0)
[2018-04-28] MEDS: ACETAMINOPHEN 325 MG TAB PO (19:49)
[2018-04-28] MEDS: BISACODYL 10 MG SUPP PR (19:49)
[2018-04-28] MEDS: SOD CHLORIDE 0.9% 1,000 ML IV (19:51)
[2018-04-28] MEDS: DICLOFENAC SODIUM 1% GEL 100 GM TUBE TP (21:00)
[2018-04-28] MEDS: PRAZOSIN 1 MG CAP PO ×2 (21:00→23:07)
[2018-04-28] MEDS: GABAPENTIN 300 MG CAP PO (21:02)
[2018-04-28] MEDS: BACLOFEN 10 MG TAB PO (21:02)
[2018-04-28] MEDS: DOCUSATE SODIUM 100 MG CAP PO (21:02)
[2018-04-28] MEDS: MEROPENEM 500MG/50 ML (PMX) 50 ML IVPB ×2 (21:15→21:47)
[2018-04-28] MEDS: HYDROCODONE/APAP (5/325) TAB PO (22:00)
[2018-04-28] MEDS: VANCOMYCIN 1 GM 250 ML IVPB (22:58)
[2018-04-29] MEDS: SOD CHLORIDE 0.9% 1,000 ML IV ×3 (01:25→18:17)
[2018-04-29 05:48] LABS: ADD MAN DIFF? NO
[2018-04-29] MEDS: HYDROCODONE/APAP (5/325) TAB PO ×3 (06:00→21:42)
[2018-04-29] MEDS: MEROPENEM 500MG/50 ML (PMX) 50 ML IVPB ×3 (06:18→21:42)
[2018-04-29] MEDS: PANTOPRAZOLE 40 MG INJ IV (06:18)
[2018-04-29 06:42] LABS: BASOPHIL # 0.1 10^3/ul (0.0-0.1); BASOPHILS % 0.5 % (0.0-2.0); EOSINOPHILS # 0.2 10^3/ul (0.0-0.5); EOSINOPHILS % 1.3 % (0.0-7.0); HEMATOCRIT 39.2 % (42.0-52.0); HEMOGLOBIN 12.8 g/dl (14.0-18.0); LYMPHOCYTES # 1.6 10^3/ul (0.8-2.9); MEAN CORPUSCULAR HEMOGLOBIN 28.5 pg (29.0-33.0); MEAN CORPUSCULAR HGB CONC 32.7 g/dl (32.0-37.0); MEAN CORPUSCULAR VOLUME 87.3 fl (82.0-101.0); MEAN PLATELET VOLUME 9.4 fl (7.4-10.4); MONOCYTE # 0.9 10^3/ul (0.3-0.9); NEUTROPHIL # 9.8 10^3/ul (1.6-7.5); NEUTROPHILS % 77.6 % (39.0-77.0); PLATELET COUNT 336 10^3/UL (140-415); RED BLOOD COUNT 4.49 10^6/ul (4.70-6.10); RED CELL DISTRIBUTION WIDTH 14.3 % (11.5-14.5)
[2018-04-29 06:42] LABS: WHITE BLOOD COUNT 12.6 10^3/ul (4.8-10.8)
[2018-04-29] MEDS: VANCOMYCIN 1 GM 250 ML IVPB ×2 (07:07→15:17)
[2018-04-29] MEDS: GABAPENTIN 300 MG CAP PO ×2 (08:41→20:57)
[2018-04-29] MEDS: BACLOFEN 10 MG TAB PO ×3 (08:41→20:57)
[2018-04-29] MEDS: DOCUSATE SODIUM 100 MG CAP PO ×2 (08:41→20:57)
[2018-04-29] MEDS: ASCORBIC ACID 500 MG TAB PO (08:41)
[2018-04-29] MEDS: FAMOTIDINE 20 MG TAB PO (08:41)
[2018-04-29] MEDS: ENOXAPARIN 40 MG/0.4 ML SYG SC (08:45)
[2018-04-29] MEDS: DICLOFENAC SODIUM 1% GEL 100 GM TUBE TP ×2 (08:46→20:57)
[2018-04-29] MEDS: ACETAMINOPHEN 325 MG TAB PO ×2 (08:54→21:42)
[2018-04-29 09:52] LABS: ALANINE AMINOTRANSFERASE 77 IU/L (13-69); ALBUMIN 3.3 g/dl (3.3-4.9); ALKALINE PHOSPHATASE 66 IU/L (42-121); ANION GAP 13 (8-16); ASPARTATE AMINO TRANSFERASE 38 IU/L (15-46); BILIRUBIN,INDIRECT 0.5 mg/dl (0-1.1); BILIRUBIN,TOTAL 0.5 mg/dl (0.2-1.3); BLOOD UREA NITROGEN 6 mg/dl (7-20); CALCIUM 8.7 mg/dl (8.4-10.2); CARBON DIOXIDE 26 mmol/L (21-31); CHLORIDE 110 mmol/L (97-110); CREATININE 0.54 mg/dl (0.61-1.24); GLUCOSE 135 mg/dl (70-220); MAGNESIUM 1.9 mg/dl (1.7-2.5); PHOSPHORUS 3.4 mg/dl (2.5-4.9); POTASSIUM 4.1 mmol/L (3.5-5.1); SODIUM 145 mmol/L (135-144); TOTAL PROTEIN 6.3 g/dl (6.1-8.1)
[2018-04-29] MEDS ORDERED: PENDING SANTYL ORDER FOR WOUND CARE XX (12:30)
[2018-04-29] MEDS: SALINE 0.65% 45 ML NAS SPRAY NASAL (14:28)
[2018-04-29] MEDS: BISACODYL 10 MG SUPP PR (17:00)
[2018-04-29] MEDS: PRAZOSIN 1 MG CAP PO (20:57)
[2018-04-30] MEDS: SOD CHLORIDE 0.9% 1,000 ML IV ×3 (02:07→12:25)
[2018-04-30 05:37] LABS: ADD MAN DIFF? NO
[2018-04-30 05:46] LABS: BASOPHIL # 0.1 10^3/ul (0.0-0.1); BASOPHILS % 0.8 % (0.0-2.0); EOSINOPHILS # 0.5 10^3/ul (0.0-0.5); EOSINOPHILS % 5.6 % (0.0-7.0); HEMATOCRIT 37.5 % (42.0-52.0); HEMOGLOBIN 12.4 g/dl (14.0-18.0); LYMPHOCYTES # 2.7 10^3/ul (0.8-2.9); LYMPHOCYTES % 32.8 % (15.0-51.0); MEAN CORPUSCULAR HGB CONC 33.1 g/dl (32.0-37.0); MEAN CORPUSCULAR VOLUME 87.8 fl (82.0-101.0); MEAN PLATELET VOLUME 9.6 fl (7.4-10.4); MONOCYTE # 0.8 10^3/ul (0.3-0.9); MONOCYTES % 9.4 % (0.0-11.0); NEUTROPHIL # 4.2 10^3/ul (1.6-7.5); NEUTROPHILS % 50.8 % (39.0-77.0); PLATELET COUNT 348 10^3/UL (140-415); RED BLOOD COUNT 4.27 10^6/ul (4.70-6.10); RED CELL DISTRIBUTION WIDTH 13.7 % (11.5-14.5)
[2018-04-30 05:46] LABS: WHITE BLOOD COUNT 8.4 10^3/ul (4.8-10.8)
[2018-04-30] MEDS: HYDROCODONE/APAP (5/325) TAB PO ×3 (06:00→22:00)
[2018-04-30 06:03] LABS: PHOSPHORUS 3.6 mg/dl (2.5-4.9)
[2018-04-30 06:10] LABS: ANION GAP 14 (8-16); BLOOD UREA NITROGEN 4 mg/dl (7-20); CALCIUM 8.6 mg/dl (8.4-10.2); CARBON DIOXIDE 27 mmol/L (21-31); CHLORIDE 109 mmol/L (97-110); CREATININE 0.49 mg/dl (0.61-1.24); GLUCOSE 107 mg/dl (70-220); POTASSIUM 3.5 mmol/L (3.5-5.1); SODIUM 146 mmol/L (135-144)
[2018-04-30] MEDS: PANTOPRAZOLE 40 MG INJ IV (06:19)
[2018-04-30] MEDS: MEROPENEM 500MG/50 ML (PMX) 50 ML IVPB ×3 (06:19→22:06)
[2018-04-30] MEDS: GABAPENTIN 300 MG CAP PO ×2 (08:51→20:16)
[2018-04-30] MEDS: FAMOTIDINE 20 MG TAB PO (08:51)
[2018-04-30] MEDS: SALINE 0.65% 45 ML NAS SPRAY NASAL (08:51)
[2018-04-30] MEDS: ASCORBIC ACID 500 MG TAB PO (08:51)
[2018-04-30] MEDS: DOCUSATE SODIUM 100 MG CAP PO ×2 (08:51→20:16)
[2018-04-30] MEDS: BACLOFEN 10 MG TAB PO ×3 (08:52→20:17)
[2018-04-30] MEDS: ENOXAPARIN 40 MG/0.4 ML SYG SC (08:58)
[2018-04-30] MEDS: DICLOFENAC SODIUM 1% GEL 100 GM TUBE TP ×2 (09:00→22:06)
[2018-04-30] MEDS: PRAZOSIN 1 MG CAP PO (20:18)
[2018-04-30] MEDS: BISACODYL 10 MG SUPP PR (23:06)
[2018-05-01] MEDS: ACETAMINOPHEN 325 MG TAB PO ×4 (02:49→22:01)
[2018-05-01 05:44] LABS: WHITE BLOOD COUNT 7.8 10^3/ul (4.8-10.8)
[2018-05-01 05:44] LABS: ADD MAN DIFF? NO; BASOPHIL # 0.1 10^3/ul (0.0-0.1); EOSINOPHILS # 0.4 10^3/ul (0.0-0.5); EOSINOPHILS % 5.7 % (0.0-7.0); HEMATOCRIT 38.7 % (42.0-52.0); HEMOGLOBIN 12.8 g/dl (14.0-18.0); LYMPHOCYTES # 2.8 10^3/ul (0.8-2.9); LYMPHOCYTES % 35.7 % (15.0-51.0); MEAN CORPUSCULAR HEMOGLOBIN 28.8 pg (29.0-33.0); MEAN CORPUSCULAR HGB CONC 33.1 g/dl (32.0-37.0); MEAN PLATELET VOLUME 9.4 fl (7.4-10.4); MONOCYTE # 0.6 10^3/ul (0.3-0.9); MONOCYTES % 7.6 % (0.0-11.0); NEUTROPHIL # 3.8 10^3/ul (1.6-7.5); NEUTROPHILS % 49.5 % (39.0-77.0); PLATELET COUNT 364 10^3/UL (140-415); RED BLOOD COUNT 4.45 10^6/ul (4.70-6.10); RED CELL DISTRIBUTION WIDTH 13.6 % (11.5-14.5)
[2018-05-01] MEDS: HYDROCODONE/APAP (5/325) TAB PO ×3 (06:00→22:00)
[2018-05-01] MEDS: MEROPENEM 500MG/50 ML (PMX) 50 ML IVPB ×3 (06:24→22:06)
[2018-05-01 06:29] LABS: ANION GAP 8 (8-16); BLOOD UREA NITROGEN 3 mg/dl (7-20); CARBON DIOXIDE 28 mmol/L (21-31); CHLORIDE 109 mmol/L (97-110); GLUCOSE 127 mg/dl (70-220); POTASSIUM 3.6 mmol/L (3.5-5.1); SODIUM 141 mmol/L (135-144)
[2018-05-01] MEDS: BACLOFEN 10 MG TAB PO ×3 (08:27→22:00)
[2018-05-01] MEDS: GABAPENTIN 300 MG CAP PO ×2 (08:27→22:01)
[2018-05-01] MEDS: ASCORBIC ACID 500 MG TAB PO (08:27)
[2018-05-01] MEDS: DOCUSATE SODIUM 100 MG CAP PO ×2 (08:27→22:00)
[2018-05-01] MEDS: FAMOTIDINE 20 MG TAB PO (08:27)
[2018-05-01] MEDS: DICLOFENAC SODIUM 1% GEL 100 GM TUBE TP ×2 (08:29→22:06)
[2018-05-01] MEDS: SALINE 0.65% 45 ML NAS SPRAY NASAL (08:33)
[2018-05-01] MEDS: ENOXAPARIN 40 MG/0.4 ML SYG SC (08:36)
[2018-05-01] MEDS: LISINOPRIL 5 MG TAB PO ×2 (10:00→10:42)
[2018-05-01] MEDS: METOPROLOL (XL) 50 MG TAB PO ×2 (10:00→22:02)
[2018-05-01] MEDS ORDERED: NON-FORMULARY/PATIENT OWN MED (Cranberry Fruit Concentrate (Cranberry) 450 MG) PO (10:00)
[2018-05-01] MEDS: SOD CHLORIDE 0.9% 1,000 ML IV ×2 (11:01→11:28)
[2018-05-01] MEDS: ACYCLOVIR 400 MG TAB PO ×2 (11:28→22:02)
[2018-05-01] MEDS ORDERED: morphine LIQ (10 MG/5 ML) CUP PO (15:00)
[2018-05-01] MEDS: BISACODYL 10 MG SUPP PR (16:21)
[2018-05-01] MEDS: PRAZOSIN 1 MG CAP PO (21:00)
[2018-05-02] MEDS: BISACODYL 10 MG SUPP PR ×3 (00:02→22:19)
[2018-05-02] MEDS: MEROPENEM 500MG/50 ML (PMX) 50 ML IVPB ×3 (05:54→21:41)
[2018-05-02] MEDS: HYDROCODONE/APAP (5/325) TAB PO ×3 (05:57→21:53)
[2018-05-02] MEDS: SOD CHLORIDE 0.9% 1,000 ML IV ×2 (07:01→08:44)
[2018-05-02] MEDS: SALINE 0.65% 45 ML NAS SPRAY NASAL (08:40)
[2018-05-02] MEDS: FAMOTIDINE 20 MG TAB PO (08:41)
[2018-05-02] MEDS: ASCORBIC ACID 500 MG TAB PO (08:41)
[2018-05-02] MEDS: GABAPENTIN 300 MG CAP PO ×2 (08:41→21:43)
[2018-05-02] MEDS: ACYCLOVIR 400 MG TAB PO ×2 (08:41→21:42)
[2018-05-02] MEDS: DOCUSATE SODIUM 100 MG CAP PO ×2 (08:41→21:43)
[2018-05-02] MEDS: BACLOFEN 10 MG TAB PO ×3 (08:41→21:42)
[2018-05-02] MEDS: DICLOFENAC SODIUM 1% GEL 100 GM TUBE TP ×2 (08:42→21:44)
[2018-05-02] MEDS: LISINOPRIL 5 MG TAB PO (08:44)
[2018-05-02] MEDS: METOPROLOL (XL) 50 MG TAB PO ×2 (08:44→21:42)
[2018-05-02] MEDS: ENOXAPARIN 40 MG/0.4 ML SYG SC (08:50)
[2018-05-02] MEDS ORDERED: BENZOCAINE 10% 7 GM GEL MM (15:30)
[2018-05-02] MEDS ORDERED: BENZOCAINE 20% 9.5 GM GEL MM (15:30)
[2018-05-02] MEDS: BENZOCAINE 20% 0.33 OZ. GEL MM (21:42)
[2018-05-02] MEDS: PRAZOSIN 1 MG CAP PO (21:43)
[2018-05-03] MEDS: HYDROCODONE/APAP (5/325) TAB PO ×2 (05:22→14:00)
[2018-05-03] MEDS: MEROPENEM 500MG/50 ML (PMX) 50 ML IVPB ×2 (05:22→12:44)
[2018-05-03] MEDS: LISINOPRIL 5 MG TAB PO (09:00)
[2018-05-03] MEDS: METOPROLOL (XL) 50 MG TAB PO ×2 (09:00→20:23)
[2018-05-03] MEDS: FAMOTIDINE 20 MG TAB PO (09:05)
[2018-05-03] MEDS: BACLOFEN 10 MG TAB PO ×3 (09:05→20:20)
[2018-05-03] MEDS: ACYCLOVIR 400 MG TAB PO ×2 (09:05→20:19)
[2018-05-03] MEDS: DOCUSATE SODIUM 100 MG CAP PO ×2 (09:05→20:20)
[2018-05-03] MEDS: GABAPENTIN 300 MG CAP PO ×2 (09:05→20:20)
[2018-05-03] MEDS: ASCORBIC ACID 500 MG TAB PO (09:06)
[2018-05-03] MEDS: ACETAMINOPHEN 325 MG TAB PO (09:06)
[2018-05-03] MEDS: SALINE 0.65% 45 ML NAS SPRAY NASAL (09:07)
[2018-05-03] MEDS: DICLOFENAC SODIUM 1% GEL 100 GM TUBE TP (09:07)
[2018-05-03] MEDS: BENZOCAINE 20% 0.33 OZ. GEL MM (09:13)
[2018-05-03] MEDS: ENOXAPARIN 40 MG/0.4 ML SYG SC (09:28)
[2018-05-03 14:47] LABS: ADD MAN DIFF? NO
[2018-05-03 14:49] LABS: WHITE BLOOD COUNT 8.6 10^3/ul (4.8-10.8)
[2018-05-03 14:49] LABS: BASOPHIL # 0.1 10^3/ul (0.0-0.1); BASOPHILS % 0.7 % (0.0-2.0); EOSINOPHILS # 0.2 10^3/ul (0.0-0.5); EOSINOPHILS % 2.3 % (0.0-7.0); HEMATOCRIT 41.6 % (42.0-52.0); HEMOGLOBIN 13.6 g/dl (14.0-18.0); LYMPHOCYTES # 2.9 10^3/ul (0.8-2.9); MEAN CORPUSCULAR HEMOGLOBIN 28.6 pg (29.0-33.0); MEAN CORPUSCULAR HGB CONC 32.7 g/dl (32.0-37.0); MEAN CORPUSCULAR VOLUME 87.6 fl (82.0-101.0); MEAN PLATELET VOLUME 9.2 fl (7.4-10.4); MONOCYTE # 0.5 10^3/ul (0.3-0.9); MONOCYTES % 6.2 % (0.0-11.0); NEUTROPHIL # 4.8 10^3/ul (1.6-7.5); NEUTROPHILS % 56.1 % (39.0-77.0); PLATELET COUNT 406 10^3/UL (140-415); RED BLOOD COUNT 4.75 10^6/ul (4.70-6.10); RED CELL DISTRIBUTION WIDTH 13.4 % (11.5-14.5)
[2018-05-03 14:54] LABS: ANION GAP 14 (8-16); BLOOD UREA NITROGEN 6 mg/dl (7-20); CALCIUM 9.3 mg/dl (8.4-10.2); CARBON DIOXIDE 24 mmol/L (21-31); CHLORIDE 107 mmol/L (97-110); CREATININE 0.63 mg/dl (0.61-1.24); GLUCOSE 201 mg/dl (70-220); POTASSIUM 3.9 mmol/L (3.5-5.1); SODIUM 141 mmol/L (135-144)
[2018-05-03] MEDS: BISACODYL 10 MG SUPP PR (17:00)
[2018-05-03] MEDS: PRAZOSIN 1 MG CAP PO (20:23)
== END 2018-05-03 21:55 | DRG 872 ==
LOC: E/R 13:22 → MS2 15:33
DX: A41.59 Other Gram-negative sepsis (principal); E87.2 Acidosis; N39.0 Urinary tract infection, site not specified; G82.20 Paraplegia, unspecified; E87.0 Hyperosmolality and hypernatremia; R65.20 Severe sepsis without septic shock; S12.300S Unspecified displaced fracture of fourth cervical vertebra, sequela; V00-Y99 External causes of morbidity; K59.09 Other constipation; Z96.0 Presence of urogenital implants; Z74.01 Bed confinement status; N40.0 Benign prostatic hyperplasia without lower urinary tract symptoms; R80.9 Proteinuria, unspecified; R74.8 Abnormal levels of other serum enzymes; B00.1 Herpesviral vesicular dermatitis
CPT/HCPCS: 36415; 71045; 80048; 80053; 81001; 83605; 83735; 84100; 84484; 85025; 85610; 85730; 87040; 87081; 87086; 93005; 96365; 96366; 96368; 99291-25